=== PATIENT | female | born 1975 | race Caucasian/White ===

== ENCOUNTER 2018-05-19 18:09 | Outpatient (CLI) | payer BC | END 2018-05-19 20:48 | disposition home or self-care (01) | LOC: OBT 18:09 → L-D 18:10 → OBT 20:48 | DX: O24.414 Gestational diabetes mellitus in pregnancy, insulin controlled (principal); O09.523 Supervision of elderly multigravida, third trimester; Z3A.31 31 weeks gestation of pregnancy | CPT/HCPCS: 76815 ==

== ENCOUNTER 2018-05-21 17:00 | Outpatient (CLI) | payer BC ==
[2018-05-21 17:59] LABS: ADD MAN DIFF? NO
[2018-05-21 18:01] LABS: BASOPHILS % 0.3 % (0.0-2.0); COLLECTION PERIOD 24 hrs; EOSINOPHILS # 0.1 10^3/ul (0.0-0.5); EOSINOPHILS % 0.7 % (0.0-7.0); HEMATOCRIT 33.3 % (37.0-47.0); HEMOGLOBIN 11.2 g/dl (12.0-16.0); IMMATURE GRANS #M 0.05 10^3/ul; IMMATURE GRANS % (M) 0.7 %; LYMPHOCYTES % 28.7 % (15.0-51.0); MEAN CORPUSCULAR HEMOGLOBIN 33.3 pg (29.0-33.0); MEAN CORPUSCULAR HGB CONC 33.6 g/dl (32.0-37.0); MEAN CORPUSCULAR VOLUME 99.1 fl (82.0-101.0); MONOCYTE # 0.5 10^3/ul (0.3-0.9); NEUTROPHIL # 4.4 10^3/ul (1.6-7.5); NEUTROPHILS % 62.6 % (39.0-77.0); PLATELET COUNT 203 10^3/UL (140-415); RED BLOOD COUNT 3.36 10^6/ul (4.20-5.40)
[2018-05-21 18:16] LABS: PARTIAL THROMBOPLASTIN TIME 26.2 Sec (25.0-35.0); PROTIME 11.1 Sec (11.9-14.9); PT RATIO 0.9
[2018-05-21 18:19] LABS: ALANINE AMINOTRANSFERASE 31 IU/L (13-69); ALBUMIN 2.9 g/dl (3.3-4.9); ALBUMIN/GLOBULIN RATIO 1.03; ALKALINE PHOSPHATASE 102 IU/L (42-121); ANION GAP 10 (8-16); ASPARTATE AMINO TRANSFERASE 31 IU/L (15-46); BILIRUBIN,INDIRECT 0.1 mg/dl (0-1.1); BILIRUBIN,TOTAL 0.1 mg/dl (0.2-1.3); BLOOD UREA NITROGEN 14 mg/dl (7-20); CALCIUM 8.7 mg/dl (8.4-10.2); CARBON DIOXIDE 24 mmol/L (21-31); CHLORIDE 108 mmol/L (97-110); CREATININE 0.42 mg/dl (0.44-1.00); GLUCOSE 112 mg/dl (70-220); POTASSIUM 3.8 mmol/L (3.5-5.1); SODIUM 138 mmol/L (135-144); TOTAL PROTEIN 5.7 g/dl (6.1-8.1); URIC ACID 2.7 mg/dl (3.1-7.9)
[2018-05-21 18:30] LABS: CREATININE,URINE RANDOM 69.93 mg/dl (20-320)
[2018-05-21 18:36] LABS: COLLECTION PERIOD 24 hrs; SCRET 0.42 mg/dl (0.44-1.00); VOLUME 1600 ml/24hrs; VOLUME 1600 mls
== END 2018-05-21 19:58 | disposition home or self-care (01) ==
LOC: OBT 17:00 → L-D 17:04 → OBT 19:58
DX: O24.414 Gestational diabetes mellitus in pregnancy, insulin controlled (principal); O09.523 Supervision of elderly multigravida, third trimester; Z3A.31 31 weeks gestation of pregnancy; Z79.4 Long term (current) use of insulin
CPT/HCPCS: 76818; 80053; 82575; 82962; 84156; 84560; 85025; 85384; 85610; 85730

== ENCOUNTER 2018-05-23 19:40 | Outpatient (CLI) | payer BC | END 2018-05-23 23:30 | disposition home or self-care (01) | LOC: OBT 19:40 → L-D 19:42 → OBT 23:30 | DX: O24.414 Gestational diabetes mellitus in pregnancy, insulin controlled (principal); O09.513 Supervision of elderly primigravida, third trimester; Z3A.32 32 weeks gestation of pregnancy; Z79.4 Long term (current) use of insulin | CPT/HCPCS: 76818 ==

== ENCOUNTER 2018-05-26 19:44 | Outpatient (CLI) | payer BC | END 2018-05-26 21:36 | disposition home or self-care (01) | LOC: OBT 19:44 → L-D 19:46 → OBT 21:36 | DX: O24.414 Gestational diabetes mellitus in pregnancy, insulin controlled (principal); O09.523 Supervision of elderly multigravida, third trimester; Z3A.32 32 weeks gestation of pregnancy | CPT/HCPCS: G0463 ==

== ENCOUNTER 2018-05-30 20:01 | Outpatient (CLI) | payer BC | END 2018-05-30 21:23 | disposition home or self-care (01) | LOC: OBT 20:01 → L-D 20:04 → OBT 21:23 | DX: O24.414 Gestational diabetes mellitus in pregnancy, insulin controlled (principal); O36.8330 Maternal care for abnormalities of the fetal heart rate or rhythm, third trimester, not applicable or unspecified; O09.523 Supervision of elderly multigravida, third trimester; Z3A.33 33 weeks gestation of pregnancy | CPT/HCPCS: 76818 ==

== ENCOUNTER 2018-06-02 20:01 | Outpatient (CLI) | payer BC | END 2018-06-02 22:35 | disposition home or self-care (01) | LOC: OBT 20:01 → L-D 20:03 → OBT 22:35 | DX: O36.8330 Maternal care for abnormalities of the fetal heart rate or rhythm, third trimester, not applicable or unspecified (principal); O24.414 Gestational diabetes mellitus in pregnancy, insulin controlled; O09.523 Supervision of elderly multigravida, third trimester; Z3A.33 33 weeks gestation of pregnancy | CPT/HCPCS: 82962 ==

== ENCOUNTER 2018-06-06 20:02 | Outpatient (CLI) | payer BC | END 2018-06-06 21:39 | disposition home or self-care (01) | LOC: OBT 20:02 → L-D 20:05 → OBT 21:39 | DX: O24.414 Gestational diabetes mellitus in pregnancy, insulin controlled (principal); O09.513 Supervision of elderly primigravida, third trimester; Z3A.34 34 weeks gestation of pregnancy; Z79.4 Long term (current) use of insulin | CPT/HCPCS: 76818 ==

== ENCOUNTER 2018-06-09 19:51 | Outpatient (CLI) | payer BC | END 2018-06-09 21:47 | disposition home or self-care (01) | LOC: OBT 19:51 → L-D 19:52 → OBT 21:47 | DX: O24.414 Gestational diabetes mellitus in pregnancy, insulin controlled (principal); O09.513 Supervision of elderly primigravida, third trimester; Z3A.34 34 weeks gestation of pregnancy | CPT/HCPCS: 76818 ==

== ENCOUNTER 2018-06-13 20:00 | Outpatient (CLI) | payer BC | END 2018-06-13 23:35 | disposition home or self-care (01) | LOC: OBT 20:00 → L-D 20:02 → OBT 23:35 | DX: O24.414 Gestational diabetes mellitus in pregnancy, insulin controlled (principal); O09.523 Supervision of elderly multigravida, third trimester; Z3A.35 35 weeks gestation of pregnancy | CPT/HCPCS: 76818 ==

== ENCOUNTER 2018-06-16 13:27 | Outpatient (CLI) | payer BC | END 2018-06-16 15:25 | disposition home or self-care (01) | LOC: OBT 13:27 → L-D 13:27 → OBT 15:25 | DX: O24.414 Gestational diabetes mellitus in pregnancy, insulin controlled (principal); O09.523 Supervision of elderly multigravida, third trimester; Z3A.35 35 weeks gestation of pregnancy | CPT/HCPCS: 76818; 82962 ==

== ENCOUNTER 2018-06-20 16:38 | Outpatient (CLI) | payer BC | END 2018-06-20 18:25 | disposition home or self-care (01) | LOC: OBT 16:38 → L-D 16:39 → OBT 18:25 | DX: O24.419 Gestational diabetes mellitus in pregnancy, unspecified control (principal); O36.8330 Maternal care for abnormalities of the fetal heart rate or rhythm, third trimester, not applicable or unspecified; O09.523 Supervision of elderly multigravida, third trimester; Z3A.35 35 weeks gestation of pregnancy | CPT/HCPCS: 76818 ==

== ENCOUNTER 2018-06-23 18:46 | Outpatient (CLI) | payer BC | END 2018-06-23 21:16 | disposition home or self-care (01) | LOC: OBT 18:46 → L-D 18:47 → OBT 21:16 | DX: O24.414 Gestational diabetes mellitus in pregnancy, insulin controlled (principal); Z3A.36 36 weeks gestation of pregnancy | CPT/HCPCS: 76818 ==

== ENCOUNTER 2018-06-27 18:31 | Outpatient (CLI) | payer BC ==
[2018-06-27 22:05] LABS: ADD MAN DIFF? NO
[2018-06-27 22:06] LABS: BASOPHILS % 0.4 % (0.0-2.0); EOSINOPHILS # 0.1 10^3/ul (0.0-0.5); EOSINOPHILS % 0.8 % (0.0-7.0); HEMATOCRIT 38.8 % (37.0-47.0); HEMOGLOBIN 12.9 g/dl (12.0-16.0); LYMPHOCYTES # 2.7 10^3/ul (0.8-2.9); LYMPHOCYTES % 34.9 % (15.0-51.0); MEAN CORPUSCULAR HEMOGLOBIN 32.3 pg (29.0-33.0); MEAN CORPUSCULAR HGB CONC 33.2 g/dl (32.0-37.0); MEAN CORPUSCULAR VOLUME 97.2 fl (82.0-101.0); MEAN PLATELET VOLUME 9.4 fl (7.4-10.4); MONOCYTE # 0.5 10^3/ul (0.3-0.9); NEUTROPHIL # 4.3 10^3/ul (1.6-7.5); NEUTROPHILS % 56.2 % (39.0-77.0); PLATELET COUNT 195 10^3/UL (140-415); RED BLOOD COUNT 3.99 10^6/ul (4.20-5.40); RED CELL DISTRIBUTION WIDTH 12.1 % (11.5-14.5)
[2018-06-27 22:06] LABS: WHITE BLOOD COUNT 7.7 10^3/ul (4.8-10.8)
[2018-06-27 22:23] LABS: ADD UMIC YES; UR ASCORBIC ACID NEGATIVE (NEGATIVE); UR BACTERIA FEW /HPF (NONE SEEN); UR BILIRUBIN (Dip) NEGATIVE (NEGATIVE); UR BLOOD (Dip) NEGATIVE (NEGATIVE); UR CLARITY CLEAR (CLEAR); UR COLOR YELLOW (YELLOW); UR GLUCOSE (Dip) 1+ mg/dL (NEGATIVE); UR KETONES (Dip) NEGATIVE (NEGATIVE); UR LEUKOCYTE ESTERASE (Dip) TRACE Leu/ul (NEGATIVE); UR NITRITE (Dip) NEGATIVE (NEGATIVE); UR RBC 1 /HPF (0-5); UR SQUAMOUS EPITHELIAL CELL FEW /HPF (FEW); UR TOTAL PROTEIN (Dip) NEGATIVE (NEGATIVE); UR UROBILINOGEN (Dip) 1+ mg/dL (NEGATIVE); UR WBC 6 /HPF (0-5)
[2018-06-27 22:27] LABS: INR 0.82; PARTIAL THROMBOPLASTIN TIME 28.1 Sec (25.0-35.0); PROTIME 11.4 Sec (11.9-14.9); PT RATIO 0.9
[2018-06-27 22:31] LABS: ALANINE AMINOTRANSFERASE 41 IU/L (13-69); ALBUMIN 3.1 g/dl (3.3-4.9); ALBUMIN/GLOBULIN RATIO 1.06; ALKALINE PHOSPHATASE 167 IU/L (42-121); ANION GAP 9 (8-16); ASPARTATE AMINO TRANSFERASE 36 IU/L (15-46); BILIRUBIN,INDIRECT 0.2 mg/dl (0-1.1); BILIRUBIN,TOTAL 0.2 mg/dl (0.2-1.3); BLOOD UREA NITROGEN 11 mg/dl (7-20); CALCIUM 8.9 mg/dl (8.4-10.2); CARBON DIOXIDE 25 mmol/L (21-31); CHLORIDE 107 mmol/L (97-110); CREATININE 0.55 mg/dl (0.44-1.00); GLUCOSE 108 mg/dl (70-220); POTASSIUM 4.4 mmol/L (3.5-5.1); SODIUM 137 mmol/L (135-144); URIC ACID 2.9 mg/dl (3.1-7.9)
== END 2018-06-27 23:41 | disposition home or self-care (01) ==
LOC: OBT 18:31 → L-D 18:33 → OBT 23:41
DX: O24.414 Gestational diabetes mellitus in pregnancy, insulin controlled (principal); O09.513 Supervision of elderly primigravida, third trimester; O98.513 Other viral diseases complicating pregnancy, third trimester; B33.8 Other specified viral diseases; B19.20 Unspecified viral hepatitis C without hepatic coma; Z3A.36 36 weeks gestation of pregnancy
CPT/HCPCS: 76818; 80053; 81001; 84560; 85025; 85384; 85610; 85730

== ENCOUNTER 2018-06-30 12:48 | Outpatient (CLI) | payer BC | END 2018-06-30 15:13 | disposition home or self-care (01) | LOC: OBT 12:48 → L-D 12:50 → OBT 15:13 | DX: O24.414 Gestational diabetes mellitus in pregnancy, insulin controlled (principal); O09.513 Supervision of elderly primigravida, third trimester; Z3A.37 37 weeks gestation of pregnancy; Z79.4 Long term (current) use of insulin | CPT/HCPCS: 76818 ==

== ENCOUNTER 2018-07-04 18:30 | Inpatient (IN) | payer BC ==
[2018-07-04 21:07] LABS: ADD MAN DIFF? NO
[2018-07-04 21:09] LABS: BASOPHILS % 0.3 % (0.0-2.0); EOSINOPHILS % 0.5 % (0.0-7.0); HEMATOCRIT 36.4 % (37.0-47.0); HEMOGLOBIN 12.2 g/dl (12.0-16.0); LYMPHOCYTES # 2.2 10^3/ul (0.8-2.9); MEAN CORPUSCULAR HEMOGLOBIN 32.2 pg (29.0-33.0); MEAN CORPUSCULAR HGB CONC 33.5 g/dl (32.0-37.0); MEAN PLATELET VOLUME 9.9 fl (7.4-10.4); MONOCYTE # 0.5 10^3/ul (0.3-0.9); MONOCYTES % 7.3 % (0.0-11.0); NEUTROPHIL # 3.8 10^3/ul (1.6-7.5); NEUTROPHILS % 57.1 % (39.0-77.0); PLATELET COUNT 169 10^3/UL (140-415); RED BLOOD COUNT 3.79 10^6/ul (4.20-5.40); RED CELL DISTRIBUTION WIDTH 12.1 % (11.5-14.5)
[2018-07-04 21:09] LABS: WHITE BLOOD COUNT 6.6 10^3/ul (4.8-10.8)
[2018-07-04 21:27] LABS: ALANINE AMINOTRANSFERASE 43 IU/L (13-69); ALBUMIN 2.7 g/dl (3.3-4.9); ALKALINE PHOSPHATASE 180 IU/L (42-121); ANION GAP 10 (8-16); ASPARTATE AMINO TRANSFERASE 40 IU/L (15-46); BILIRUBIN,INDIRECT 0.3 mg/dl (0-1.1); BILIRUBIN,TOTAL 0.3 mg/dl (0.2-1.3); BLOOD UREA NITROGEN 11 mg/dl (7-20); CALCIUM 9.2 mg/dl (8.4-10.2); CARBON DIOXIDE 22 mmol/L (21-31); CHLORIDE 107 mmol/L (97-110); CREATININE 0.48 mg/dl (0.44-1.00); GLUCOSE 105 mg/dl (70-220); SODIUM 135 mmol/L (135-144); TOTAL PROTEIN 5.7 g/dl (6.1-8.1); URIC ACID 3.1 mg/dl (3.1-7.9)
[2018-07-04 21:36] LABS: ADD UMIC NO; UR ASCORBIC ACID NEGATIVE (NEGATIVE); UR BILIRUBIN (Dip) NEGATIVE (NEGATIVE); UR BLOOD (Dip) NEGATIVE (NEGATIVE); UR CLARITY CLEAR (CLEAR); UR COLOR YELLOW (YELLOW); UR GLUCOSE (Dip) 1+ mg/dL (NEGATIVE); UR KETONES (Dip) NEGATIVE (NEGATIVE); UR LEUKOCYTE ESTERASE (Dip) NEGATIVE Leu/ul (NEGATIVE); UR NITRITE (Dip) NEGATIVE (NEGATIVE); UR TOTAL PROTEIN (Dip) NEGATIVE (NEGATIVE); UR UROBILINOGEN (Dip) NEGATIVE (NEGATIVE)
[2018-07-04] MEDS ORDERED: ONDANSETRON 4 MG INJ IV (23:30)
[2018-07-04 23:52] LABS: INR 0.82; PROTIME 11.3 Sec (11.9-14.9); PT RATIO 0.9
[2018-07-04 23:53] LABS: PARTIAL THROMBOPLASTIN TIME 28.5 Sec (23.0-35.0)
[2018-07-05] MEDS: LACTATED RINGER'S 1,000 ML IV ×3 (00:04→14:50)
[2018-07-05] MEDS: INSULIN ASPART [NOVOLOG] 3 ML PEN SC ×2 (00:30→08:58)
[2018-07-05] MEDS: NPH, HUMAN INSULIN ISOPHANE 3ML VIAL SC ×2 (02:04→08:59)
[2018-07-05] MEDS ORDERED: OXYTOCIN 30 UNITS/LR 500 ML BAG IV (07:00)
[2018-07-05] MEDS ORDERED: GLUCOSE GEL 15 GRAM TUBE PO ×2 (08:00)
[2018-07-05] MEDS ORDERED: DEXTROSE 50% 50 ML SYRINGE IV ×2 (08:00)
[2018-07-05] MEDS ORDERED: GLUCAGON 1 MG INJ IM (08:00)
[2018-07-05] MEDS ORDERED: GLUCOSE GEL 15 GRAM TUBE BUCCAL (08:00)
[2018-07-05] MEDS: ACCU-CHEK XX ×4 (08:56→19:35)
[2018-07-05] MEDS: PRENATAL VITAMIN PO (09:00)
[2018-07-05] MEDS ORDERED: CARBOPROST 250 MCG INJ IM ×2 (12:00→19:30)
[2018-07-05] MEDS ORDERED: MISOPROSTOL 200 MCG TAB PR ×2 (12:00→19:30)
[2018-07-05] MEDS ORDERED: CEFAZOLIN 2 GM/50 ML (PMX) 50 ML IV ×2 (12:00→19:30)
[2018-07-05] MEDS ORDERED: METHYLERGONOVINE 0.2 MG INJ IM ×2 (12:00→19:30)
[2018-07-05] MEDS ORDERED: OXYTOCIN 30 UNITS/LR 500 ML IV ×2 (12:00→19:30)
[2018-07-05 13:24] LABS: HEPATITIS B SURFACE ANTIGEN NEGATIVE (NEGATIVE)
[2018-07-05] MEDS: DEXTROSE 5%-LR 1,000 ML IV (14:48)
[2018-07-05 15:08] LABS: RAPID PLASMA REAGIN NONREACTIVE (NR)
[2018-07-05] MEDS ORDERED: INSULIN ASPART [NOVOLOG] 3 ML PEN SC (17:05)
[2018-07-05] MEDS ORDERED: HYDROmorphONE 1 MG/5 ML IV SYRINGE IV ×3 (17:30)
[2018-07-05] MEDS ORDERED: DIPHENHYDRAMINE 50 MG INJ IV ×2 (17:30)
[2018-07-05] MEDS ORDERED: ONDANSETRON 4 MG INJ IV ×2 (17:30)
[2018-07-05] MEDS ORDERED: HYDROmorphONE 0.5 MG/0.5 ML SYG IV ×2 (17:30)
[2018-07-05] MEDS ORDERED: METOCLOPRAMIDE 10 MG INJ IV (17:30)
[2018-07-05] MEDS ORDERED: KETOROLAC 30 MG INJ IV (17:30)
[2018-07-05] MEDS ORDERED: ALBUTEROL 0.083% (NEB) 2.5 MG/3 ML AMP HHN (17:30)
[2018-07-05] MEDS ORDERED: FENTAnyl 50 MCG/ML VIAL IV ×2 (17:30)
[2018-07-05] MEDS ORDERED: NALOXONE (0.4 MG/ML) INJ IV (17:30)
[2018-07-05] MEDS ORDERED: morphine SULFATE/PF (10 MG/10 ML) INJ (18:04)
[2018-07-05] MEDS ORDERED: BUPIVACAINE 0.75%/DEXT (SPINAL) 2 ML INJ (18:04)
[2018-07-05] MEDS ORDERED: PHENYLephrine (100 MCG/ML) 5ML SYG (18:11)
[2018-07-05] MEDS: OXYTOCIN 30 UNITS/LR 500 ML IV ×2 (19:27→23:57)
[2018-07-05] MEDS ORDERED: OXYCODONE/ACETAMINOPHEN (5/325) TAB PO (19:30)
[2018-07-05] MEDS: SENNA/DOCUSATE NA (8.6MG/50MG) TAB PO (21:00)
[2018-07-06] MEDS: KETOROLAC 30 MG INJ IV ×2 (01:02→17:17)
[2018-07-06] MEDS: CEFAZOLIN 2 GM/50 ML (PMX) 50 ML IVPB ×3 (02:25→17:17)
[2018-07-06] MEDS: IBUPROFEN 600 MG TAB PO ×3 (06:00→23:39)
[2018-07-06] MEDS: ACCU-CHEK XX ×2 (08:11→10:05)
[2018-07-06 08:40] LABS: ADD MAN DIFF? NO
[2018-07-06 08:51] LABS: BASOPHILS % 0.2 % (0.0-2.0); HEMATOCRIT 32.9 % (37.0-47.0); HEMOGLOBIN 11.1 g/dl (12.0-16.0); LYMPHOCYTES # 1.9 10^3/ul (0.8-2.9); LYMPHOCYTES % 18.9 % (15.0-51.0); MEAN CORPUSCULAR HEMOGLOBIN 32.9 pg (29.0-33.0); MEAN CORPUSCULAR HGB CONC 33.7 g/dl (32.0-37.0); MEAN CORPUSCULAR VOLUME 97.6 fl (82.0-101.0); MEAN PLATELET VOLUME 9.9 fl (7.4-10.4); MONOCYTE # 0.5 10^3/ul (0.3-0.9); MONOCYTES % 5.4 % (0.0-11.0); NEUTROPHIL # 7.5 10^3/ul (1.6-7.5); PLATELET COUNT 184 10^3/UL (140-415); RED BLOOD COUNT 3.37 10^6/ul (4.20-5.40); RED CELL DISTRIBUTION WIDTH 12.6 % (11.5-14.5)
[2018-07-06] MEDS: SENNA/DOCUSATE NA (8.6MG/50MG) TAB PO ×2 (09:44→20:55)
[2018-07-07] MEDS: IBUPROFEN 600 MG TAB PO ×4 (05:32→23:31)
[2018-07-07] MEDS ORDERED: ACCU-CHEK XX (06:00)
[2018-07-07] MEDS: ACCU-CHEK XX ×6 (08:13→21:00)
[2018-07-07] MEDS: SENNA/DOCUSATE NA (8.6MG/50MG) TAB PO ×2 (08:14→21:00)
[2018-07-07] MEDS: FERROUS GLUCONATE (EC) 325 MG TAB PO (08:15)
[2018-07-07] MEDS: OXYCODONE/ACETAMINOPHEN (5/325) TAB PO (09:24)
[2018-07-07] MEDS: INSULIN ASPART [NOVOLOG] 3 ML PEN SC ×2 (13:14→21:00)
[2018-07-07] MEDS ORDERED: GLUCAGON 1 MG INJ IM (13:30)
[2018-07-07] MEDS ORDERED: DEXTROSE 50% 50 ML SYRINGE IV ×2 (13:30)
[2018-07-07] MEDS ORDERED: GLUCOSE GEL 15 GRAM TUBE BUCCAL (13:30)
[2018-07-07] MEDS ORDERED: GLUCOSE GEL 15 GRAM TUBE PO ×2 (13:30)
[2018-07-08] MEDS: IBUPROFEN 600 MG TAB PO ×2 (05:43→11:46)
[2018-07-08] MEDS: ACCU-CHEK XX ×3 (06:00→11:20)
[2018-07-08] MEDS: INSULIN ASPART [NOVOLOG] 3 ML PEN SC ×2 (08:05→12:51)
[2018-07-08] MEDS: FERROUS GLUCONATE (EC) 325 MG TAB PO (09:07)
[2018-07-08] MEDS: SENNA/DOCUSATE NA (8.6MG/50MG) TAB PO (09:07)
== END 2018-07-08 15:51 | disposition home or self-care (01) | DRG 765 ==
LOC: OBT 18:30 → L-D 18:32 → OBT 23:00 → L-D 23:00 → PP1 07-05 21:44
PROC: 4A1HXCZ Monitoring of Products of Conception, Cardiac Rate, External Approach (ICD-10-PCS; 2018-07-04)
PROC: 10D00Z1 Extraction of Products of Conception, Low, Open Approach (ICD-10-PCS; principal; 2018-07-05)
DX: O13.4 Gestational [pregnancy-induced] hypertension without significant proteinuria, complicating childbirth (principal); O98.42 Viral hepatitis complicating childbirth; O24.425 Gestational diabetes mellitus in childbirth, controlled by oral hypoglycemic drugs; B18.2 Chronic viral hepatitis C; Z98.890 Other specified postprocedural states; Z90.721 Acquired absence of ovaries, unilateral; Z79.4 Long term (current) use of insulin; Z37.0 Single live birth; Z3A.38 38 weeks gestation of pregnancy
CPT/HCPCS: 76818; 80053; 81003; 82962; 84560; 85025; 85610; 85730; 86592; 86850; 86900; 86901; 87340; 99464